=== PATIENT | male | born 1945 | race Caucasian/White ===

== ENCOUNTER → 2016-09-02 | Outpatient (CLI) | payer MEDICARE, OTHER | LOC: MRI 08-26 13:00 → OPSV 09:00 → MRI 11:00 | DX: R51 Headache (principal); C91.10 Chronic lymphocytic leukemia of B-cell type not having achieved remission; E86.0 Dehydration; R53.81 Other malaise; R10.13 Epigastric pain; R59.9 Enlarged lymph nodes, unspecified; R41.82 Altered mental status, unspecified; R50.9 Fever, unspecified; R30.0 Dysuria; R26.89 Other abnormalities of gait and mobility; Z79.899 Other long term (current) drug therapy | CPT/HCPCS: 70553; 96360; 96361; A9577; J1642; J7050 ==